=== PATIENT | male | born 1960 | race American Indian/Alaskan Native ===

== ENCOUNTER 2020-03-29 14:11 | Emergency (ER) | payer OTHER ==
[2020-03-29 14:59] VITALS: BP 137/91
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
[2020-03-29] MEDS ORDERED: KETOROLAC 30 MG/1 ML INJ IM ONE (16:55)
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
== END 2020-03-29 18:10 | disposition home or self-care (01) ==
LOC: ED 14:11
DX: S09.90XA Unspecified injury of head, initial encounter (principal); M54.6 Pain in thoracic spine; Z98.890 Other specified postprocedural states; Z79.1 Long term (current) use of non-steroidal anti-inflammatories (NSAID); Z79.899 Other long term (current) drug therapy; V49.59XA Passenger injured in collision with other motor vehicles in traffic accident, initial encounter; Y93.89 Activity, other specified; Y92.410 Unspecified street and highway as the place of occurrence of the external cause; Y99.8 Other external cause status
CPT/HCPCS: 70450; 72072; 72100; 72125; 96372; 99284; J1885